=== PATIENT | female | born 1965 | race Caucasian/White ===

== ENCOUNTER → 2017-12-04 | Outpatient (CLI) | payer OTHER | END | disposition home or self-care (01) | LOC: CFH 13:44 | PROVIDERS: ATTEND Family Medicine | DX: Z12.31 Encounter for screening mammogram for malignant neoplasm of breast (principal) | CPT/HCPCS: 77063; 77067 ==

== ENCOUNTER → 2020-02-10 | Outpatient (CLI) | payer OTHER | END | disposition home or self-care (01) | LOC: CFH 14:04 | PROVIDERS: ATTEND Obstetrics & Gynecology Female Pelvic Medicine and Reconstructive Surgery | DX: Z12.31 Encounter for screening mammogram for malignant neoplasm of breast (principal) | CPT/HCPCS: 77063; 77067 ==